=== PATIENT | male | born 1950 | race Caucasian/White ===

== ENCOUNTER 2018-01-23 11:52 | Inpatient (IN) | payer MEDICARE ==
[~2018-01-23] VITALS: Ht 182.9 cm; Wt 105.5 kg
[~2018-01-23 11:52] MED LIST: CYAN10007; ESOM20CA PO; FERR325T39 PO; FOL0.4T PO; HYDR-4353 PO; LEVO25TA2 PO; METF500T PO; VALS1TAB75 PO
[2018-01-23 14:00] VITALS: BP 117/85
[2018-01-23] MEDS ORDERED: ringers solution, lacted 1,000 ML IV SCH (14:58)
[2018-01-23] MEDS ORDERED: proCHLORperazine 10 MG/2 ml inj IV PRN (15:00)
[2018-01-23] MEDS ORDERED: meperidine/PF 25mg/ml syringe IV PRN ×3 (15:00)
[2018-01-23] MEDS ORDERED: morphine 4 MG/ML inj SYRINge IV PRN ×2 (15:00)
[2018-01-23] MEDS ORDERED: ondansetron/PF 4mg/2ml inj IV PRN (15:00)
[2018-01-23] MEDS ORDERED: HYDROcodone/acetaminophen 10/325mg tab PO PRN ×2 (15:25)
[2018-01-23] MEDS ORDERED: Cefazolin 2GM/100ML NS IVPB 100 ML IV ONE (15:40)
[2018-01-23] MEDS ORDERED: clindamycin 300mg/D5W 50mL 50 ML IV SCH (16:00)
[2018-01-23] MEDS ORDERED: WARF-55 PO (17:02)
[2018-01-23] MEDS ORDERED: FURO40TA4 PO (17:04)
[2018-01-23] MEDS ORDERED: METO-384 PO (17:04)
[2018-01-23] MEDS ORDERED: BENA20TA82 PO (17:06)
[2018-01-23] MEDS ORDERED: DIGO250T77 PO (17:06)
[2018-01-23] MEDS ORDERED: POTA10TA15 PO (17:06)
[2018-01-23] MEDS ORDERED: CHOL10002 PO (17:06)
[2018-01-23] MEDS: potassium CL 20mEq in D5-1/2NS 1,000 ML IV SCH (17:54)
[2018-01-23 18:00] VITALS: BP 106/76
[2018-01-23] MEDS ORDERED: LEVO100T PO (18:16)
[2018-01-23] MEDS: clindamycin 300mg/D5W 50mL 50 ML IV SCH (20:31)
[2018-01-23] MEDS ORDERED: phytonadione inj. 10 MG in normal saline 100ml IV soln 99 ML IV ONE (21:15)
[2018-01-23 22:00] VITALS: BP 107/61
[2018-01-23 22:24] LABS: BASOPHILS % (AUTO) 0.3 % (0-1); EOSINOPHILS # (AUTO) 0.1 X10'3 (0-0.9); EOSINOPHILS % (AUTO) 1.5 % (0-6); HEMATOCRIT 30.4 % (42.0-52.0); HEMOGLOBIN 9.5 g/dl (14.0-17.9); LYMPHOCYTES % (AUTO) 57.4 % (21-51); MEAN CORPUSCULAR HGB CONC 31.4 % (33.0-36.5); MEAN CORPUSCULAR VOLUME 73.4 FL (78-98); MEAN PLATELET VOLUME 6.7 FL (7.4-10.4); MONOCYTES # (AUTO) 0.4 X10'3 (0-0.9); MONOCYTES % (AUTO) 5.1 % (2-12); NEUTROPHILS # (AUTO) 2.5 X10'3 (1.8-7.7); NEUTROPHILS % (AUTO) 35.7 % (42-75); PLATELET COUNT 234 X10'3 (140-440); RED BLOOD COUNT 4.14 X10'6 (4.70-6.10); WHITE BLOOD COUNT 7.1 X10'3 (4.5-11.0)
[2018-01-23 22:34] LABS: ALANINE AMINOTRANSFERASE 30 U/L (12-78); ALBUMIN 2.7 G/DL (3.4-5.0); ALBUMIN/GLOBULIN RATIO 0.6 (1.1-1.5); ALKALINE PHOSPHATASE 113 IU/L (46-116); ANION GAP 7 (8-16); ASPARTATE AMINO TRANSFERASE 23 U/L (10-37); BILIRUBIN,TOTAL 0.4 MG/DL (0.1-1.0); BLOOD UREA NITROGEN 14 MG/DL (7-18); BUN/CREATININE RATIO 14.7 (5.4-32.0); C-REACTIVE PROTEIN 3.55 MG/DL (0.0-0.5); CALCIUM 8.4 MG/DL (8.5-10.1); CHLORIDE 98 MMOL/L (99-107); CREATININE 0.95 MG/DL (0.60-1.10); GLUCOSE 130 MG/DL (70-104); POTASSIUM 4.1 MMOL/L (3.5-5.1); SODIUM 134 MMOL/L (135-145); TOTAL PROTEIN 7.4 G/DL (6.4-8.2); eGFR 79 ML/MIN
[2018-01-23 22:37] LABS: PARTIAL THROMBOPLASTIN TIME 33 SECONDS (22-32); PROTHROMBIN TIME 19.5 SECONDS (9.0-12.0)
[2018-01-23 23:04] LABS: HEMOGLOBIN A1C 6.9 % (4.5-6.2)
[2018-01-24] VITALS (15 sets, daily range): BP systolic 103–145; BP diastolic 66–92
[2018-01-24 01:30] LABS: CLARITY,URINE CLEAR (Clear); COLOR,URINE YELLOW (Yellow); GLUCOSE, URINE NEGATIVE (Neg); KETONES,URINE NEGATIVE (Neg); LEUKOCYTE ESTERASE ,URINE NEGATIVE (Neg); NITRITES, URINE NEGATIVE (Neg); OCCULT BLOOD,URINE TRACE-LYSED (Neg); PROTEIN,URINE NEGATIVE (Neg); UROBILINOGEN,URINE 0.2 E.U/dL (0.2-1.0)
[2018-01-24 01:33] LABS: UA COLLECTION TYPE NON-SPECIFIED
[2018-01-24 01:41] LABS: BACTERIA,URINE NONE SEEN /HPF (Neg); RBC,URINE 0-2 /HPF (0-2); SQUAMOUS EPITHELIAL CELL,UR FEW /LPF (FEW); WBC,URINE NONE SEEN /HPF (0-4)
[2018-01-24] MEDS: clindamycin 300mg/D5W 50mL 50 ML IV SCH ×4 (02:09→20:00)
[2018-01-24 05:38] LABS: BASOPHILS % (AUTO) 0.1 % (0-1); EOSINOPHILS # (AUTO) 0.1 X10'3 (0-0.9); EOSINOPHILS % (AUTO) 2.5 % (0-6); HEMATOCRIT 28.7 % (42.0-52.0); HEMOGLOBIN 9.1 g/dl (14.0-17.9); LYMPHOCYTES # (AUTO) 3.8 X10'3 (1.1-4.8); MEAN CORPUSCULAR HEMOGLOBIN 23.1 PG (27.0-31.0); MEAN CORPUSCULAR HGB CONC 31.6 % (33.0-36.5); MEAN PLATELET VOLUME 6.4 FL (7.4-10.4); MONOCYTES # (AUTO) 0.3 X10'3 (0-0.9); MONOCYTES % (AUTO) 4.8 % (2-12); NEUTROPHILS # (AUTO) 1.9 X10'3 (1.8-7.7); NEUTROPHILS % (AUTO) 30.6 % (42-75); PLATELET COUNT 204 X10'3 (140-440); RED BLOOD COUNT 3.93 X10'6 (4.70-6.10); RED CELL DISTRIBUTION WIDTH 16.9 % (11.5-14.5); WHITE BLOOD COUNT 6.1 X10'3 (4.5-11.0)
[2018-01-24 05:51] LABS: ALANINE AMINOTRANSFERASE 26 U/L (12-78); ALBUMIN 2.5 G/DL (3.4-5.0); ALBUMIN/GLOBULIN RATIO 0.6 (1.1-1.5); ALKALINE PHOSPHATASE 108 IU/L (46-116); ANION GAP 8 (8-16); ASPARTATE AMINO TRANSFERASE 19 U/L (10-37); BILIRUBIN,TOTAL 0.4 MG/DL (0.1-1.0); BLOOD UREA NITROGEN 13 MG/DL (7-18); BUN/CREATININE RATIO 14.8 (5.4-32.0); CALCIUM 7.9 MG/DL (8.5-10.1); CHLORIDE 99 MMOL/L (99-107); CREATININE 0.88 MG/DL (0.60-1.10); GLUCOSE 118 MG/DL (70-104); POTASSIUM 4.3 MMOL/L (3.5-5.1); SODIUM 134 MMOL/L (135-145); TOTAL PROTEIN 6.8 G/DL (6.4-8.2); eGFR 87 ML/MIN
[2018-01-24 05:54] LABS: INR 1.6 INR; PARTIAL THROMBOPLASTIN TIME 30 SECONDS (22-32); PROTHROMBIN TIME 15.4 SECONDS (9.0-12.0)
[2018-01-24] MEDS: levoTHYROXINE 100mcg tablet PO SCH (06:47)
[2018-01-24] MEDS: pantoprazole 40mg Tablet.DR PO SCH (06:47)
[2018-01-24] MEDS: furosemide 20MG tablet PO SCH (07:16)
[2018-01-24] MEDS: lisinopril 20mg tablet PO SCH (07:16)
[2018-01-24] MEDS: ceFAZolin 1GM/D5W- ADD-VANTAGE 50 ML IV SCH ×4 (07:19→23:05)
[2018-01-24] MEDS: metFORMIN 500mg tablet PO SCH ×2 (07:19→20:00)
[2018-01-24] MEDS: potassium chloride 10mEq ER tablet PO SCH (07:20)
[2018-01-24] MEDS: folic acid 0.4mg tablet PO SCH (07:20)
[2018-01-24] MEDS: vitamin D (cholecalciferol) 1,000 unit tablet PO SCH (07:20)
[2018-01-24] MEDS: metoprolol succinate 25mg (24-HOUR) SR. Tablet PO SCH (07:21)
[2018-01-24] MEDS: digoxin 250mcg (0.25mg) tablet PO SCH (07:21)
[2018-01-24] MEDS: potassium CL 20mEq in D5-1/2NS 1,000 ML IV SCH ×3 (08:42→23:00)
[2018-01-24] MEDS ORDERED: neostigmine methylsulfate 1 MG/ML 10ml vial ONE (18:03)
[2018-01-24] MEDS ORDERED: glycopyrrolate 0.2mg/ml inj ONE (18:03)
[2018-01-24] MEDS ORDERED: ondansetron/PF 4mg/2ml inj ONE ×2 (18:03→18:53)
[2018-01-24] MEDS ORDERED: sevoflurane 250ml liquid IH ONE ×2 (18:03→18:53)
[2018-01-24] MEDS ORDERED: midazolam 2 mg/2 ml injection ONE (18:56)
[2018-01-24] MEDS ORDERED: fentaNYL /PF 50mcg/ml 5ml ampule ONE (18:57)
[2018-01-24] MEDS ORDERED: vancomycin 1,000mg inj ONE ×2 (19:12)
[2018-01-24] MEDS ORDERED: propofol inj 20 ML IV ONE (19:17)
[2018-01-24] MEDS ORDERED: rocuronium 10mg/ml inj IV ONE (19:17)
[2018-01-24] MEDS ORDERED: LIDOcaine 2% (20mg/ml) 5ml vial ONE (19:17)
[2018-01-24] MEDS ORDERED: dexamethasone sod phosphate 4mg/ml inj. ONE (19:17)
[2018-01-24 19:20] LABS: INR 1.2 INR; PARTIAL THROMBOPLASTIN TIME 28 SECONDS (22-32); PROTHROMBIN TIME 12.4 SECONDS (9.0-12.0)
[2018-01-24] MEDS ORDERED: ROPIVAcaine 0.5% (5mg/ml) 30ml vial ONE (19:34)
[2018-01-24] MEDS ORDERED: ketorolac trometh. 30mg/ml inj. ONE (19:34)
[2018-01-24] MEDS ORDERED: ringers solution, lacted 1,000 ML IV SCH (19:49)
[2018-01-24] MEDS ORDERED: ondansetron/PF 4mg/2ml inj IV PRN ×2 (19:50→21:00)
[2018-01-24] MEDS ORDERED: morphine 4 MG/ML inj SYRINge IV PRN ×2 (19:50)
[2018-01-24] MEDS ORDERED: proCHLORperazine 10 MG/2 ml inj IV PRN (19:50)
[2018-01-24] MEDS ORDERED: meperidine/PF 25mg/ml syringe IV PRN ×3 (19:50)
[2018-01-24] MEDS ORDERED: naloxone 0.4 mg/ml inj IV PRN (21:00)
[2018-01-24] MEDS ORDERED: CADD PCA waste documentation MC PRN (21:00)
[2018-01-24] MEDS ORDERED: acetaminophen 325mg tablet PO PRN (21:00)
[2018-01-24] MEDS ORDERED: mag hydrox/Alum hydrox/simeth 30ml oral suspension PO PRN (21:00)
[2018-01-24] MEDS ORDERED: metoclopramide 5 mg/ml inj IV PRN (21:00)
[2018-01-24] MEDS ORDERED: HYDROcodone/acetaminophen 10/325mg tab PO PRN (21:00)
[2018-01-24] MEDS ORDERED: magnesium hydroxide 30ml (MOM) UD suspension PO PRN (21:00)
[2018-01-24] MEDS: sennosides 8.6mg tablet PO SCH (21:00)
[2018-01-24] MEDS: gabapentin 300mg capsule PO SCH (21:00)
[2018-01-24] MEDS ORDERED: bisacodyl 10mg suppository rectal RC PRN (21:00)
[2018-01-24] MEDS ORDERED: diphenhydrAMINE 25mg capsule PO PRN ×2 (21:00)
[2018-01-24] MEDS: HYDROmorphone/NS 1 mg/ml CADD 50 ML IV SCH ×2 (21:41→23:00)
[2018-01-24] MEDS: potassium cl 20mEq in 1/2 NS 1,000 ML IV SCH (23:03)
[2018-01-24] MEDS: enoxaparin 40mg/0.4ml syringe SQ SCH (23:05)
[2018-01-25] VITALS (9 sets, daily range): BP systolic 80–117; BP diastolic 41–79
[2018-01-25] MEDS ORDERED: ceFAZolin 1GM/D5W- ADD-VANTAGE 50 ML IV SCH
[2018-01-25] MEDS: HYDROmorphone/NS 1 mg/ml CADD 50 ML IV SCH ×9 (01:00→17:00)
[2018-01-25] MEDS: acetaminophen 325mg tablet PO SCH ×4 (01:50→20:44)
[2018-01-25] MEDS: clindamycin 300mg/D5W 50mL 50 ML IV SCH ×4 (01:50→20:43)
[2018-01-25 05:54] LABS: BASOPHILS % (AUTO) 0.1 % (0-1); EOSINOPHILS # (AUTO) 0.1 X10'3 (0-0.9); EOSINOPHILS % (AUTO) 0.8 % (0-6); HEMATOCRIT 28.2 % (42.0-52.0); LYMPHOCYTES # (AUTO) 3.5 X10'3 (1.1-4.8); LYMPHOCYTES % (AUTO) 37.7 % (21-51); MEAN CORPUSCULAR HEMOGLOBIN 23.4 PG (27.0-31.0); MEAN CORPUSCULAR VOLUME 73.3 FL (78-98); MEAN PLATELET VOLUME 6.6 FL (7.4-10.4); MONOCYTES # (AUTO) 0.2 X10'3 (0-0.9); MONOCYTES % (AUTO) 2.2 % (2-12); NEUTROPHILS # (AUTO) 5.5 X10'3 (1.8-7.7); NEUTROPHILS % (AUTO) 59.2 % (42-75); PLATELET COUNT 238 X10'3 (140-440); RED BLOOD COUNT 3.85 X10'6 (4.70-6.10); RED CELL DISTRIBUTION WIDTH 16.7 % (11.5-14.5); WHITE BLOOD COUNT 9.3 X10'3 (4.5-11.0)
[2018-01-25 06:09] LABS: ANION GAP 10 (8-16); CHLORIDE 97 MMOL/L (99-107); POTASSIUM 4.6 MMOL/L (3.5-5.1); SODIUM 132 MMOL/L (135-145); TOTAL CARBON DIOXIDE 24.6 MMOL/L (24-32)
[2018-01-25] MEDS: ascorbic acid 500mg tablet PO SCH ×2 (07:46→20:43)
[2018-01-25] MEDS: enoxaparin 40mg/0.4ml syringe SQ SCH (07:46)
[2018-01-25] MEDS: gabapentin 300mg capsule PO SCH ×3 (07:46→20:43)
[2018-01-25] MEDS: potassium chloride 10mEq ER tablet PO SCH (07:47)
[2018-01-25] MEDS: vitamin D (cholecalciferol) 1,000 unit tablet PO SCH (07:47)
[2018-01-25] MEDS: metFORMIN 500mg tablet PO SCH ×2 (07:47→20:43)
[2018-01-25] MEDS: multivitamins, therapeutics tablet PO SCH (07:48)
[2018-01-25] MEDS: folic acid 0.4mg tablet PO SCH (07:48)
[2018-01-25] MEDS: levoTHYROXINE 100mcg tablet PO SCH (07:49)
[2018-01-25] MEDS: pantoprazole 40mg Tablet.DR PO SCH (07:49)
[2018-01-25] MEDS: digoxin 250mcg (0.25mg) tablet PO SCH (07:49)
[2018-01-25] MEDS: ceFAZolin 1GM/D5W- ADD-VANTAGE 50 ML IV SCH ×2 (07:50→17:38)
[2018-01-25] MEDS: lisinopril 20mg tablet PO SCH (07:58)
[2018-01-25] MEDS: metoprolol succinate 25mg (24-HOUR) SR. Tablet PO SCH (07:58)
[2018-01-25] MEDS: furosemide 20MG tablet PO SCH (07:58)
[2018-01-25] MEDS: potassium cl 20mEq in 1/2 NS 1,000 ML IV SCH ×4 (09:16→23:51)
[2018-01-25] MEDS ORDERED: normal saline 500ml IV soln 1,000 ML IV ONE (16:25)
[2018-01-25] MEDS: lactobacillus rhamnosus 10,000 MMU CELLS/CAPSULE PO SCH (20:43)
[2018-01-25] MEDS: sennosides 8.6mg tablet PO SCH (20:44)
[2018-01-25] MEDS: HYDROcodone/acetaminophen 10/325mg tab PO PRN (23:04)
[2018-01-26] MEDS: ceFAZolin 1GM/D5W- ADD-VANTAGE 50 ML IV SCH ×2 (00:03→08:23)
[2018-01-26] MEDS: clindamycin 300mg/D5W 50mL 50 ML IV SCH ×2 (02:05→07:22)
[2018-01-26] MEDS: acetaminophen 325mg tablet PO SCH ×3 (02:06→13:28)
[2018-01-26] MEDS: HYDROcodone/acetaminophen 10/325mg tab PO PRN ×3 (04:55→15:44)
[2018-01-26 05:30] VITALS: BP 118/69
[2018-01-26 07:10] VITALS: BP 148/62
[2018-01-26] MEDS: multivitamins, therapeutics tablet PO SCH (07:20)
[2018-01-26] MEDS: ascorbic acid 500mg tablet PO SCH (07:20)
[2018-01-26] MEDS: potassium chloride 10mEq ER tablet PO SCH (07:20)
[2018-01-26] MEDS: gabapentin 300mg capsule PO SCH ×2 (07:20→13:28)
[2018-01-26] MEDS: lisinopril 20mg tablet PO SCH (07:20)
[2018-01-26] MEDS: pantoprazole 40mg Tablet.DR PO SCH (07:20)
[2018-01-26] MEDS: folic acid 0.4mg tablet PO SCH (07:21)
[2018-01-26] MEDS: metoprolol succinate 25mg (24-HOUR) SR. Tablet PO SCH (07:21)
[2018-01-26] MEDS: vitamin D (cholecalciferol) 1,000 unit tablet PO SCH (07:21)
[2018-01-26] MEDS: furosemide 20MG tablet PO SCH (07:21)
[2018-01-26] MEDS: digoxin 250mcg (0.25mg) tablet PO SCH (07:21)
[2018-01-26] MEDS: metFORMIN 500mg tablet PO SCH (07:21)
[2018-01-26] MEDS: levoTHYROXINE 100mcg tablet PO SCH (07:21)
[2018-01-26] MEDS: lactobacillus rhamnosus 10,000 MMU CELLS/CAPSULE PO SCH (07:21)
[2018-01-26] MEDS ORDERED: VANCOMYCIN LEVEL IV ONE (07:30)
[2018-01-26 08:22] LABS: BASOPHILS % (AUTO) 0.4 % (0-1); EOSINOPHILS # (AUTO) 0.1 X10'3 (0-0.9); EOSINOPHILS % (AUTO) 1.1 % (0-6); HEMATOCRIT 25.8 % (42.0-52.0); HEMOGLOBIN 8.2 g/dl (14.0-17.9); LYMPHOCYTES # (AUTO) 3.9 X10'3 (1.1-4.8); MEAN CORPUSCULAR HEMOGLOBIN 23.5 PG (27.0-31.0); MEAN CORPUSCULAR HGB CONC 31.8 % (33.0-36.5); MEAN CORPUSCULAR VOLUME 73.8 FL (78-98); MEAN PLATELET VOLUME 6.4 FL (7.4-10.4); MONOCYTES # (AUTO) 0.3 X10'3 (0-0.9); MONOCYTES % (AUTO) 4.6 % (2-12); NEUTROPHILS % (AUTO) 40.9 % (42-75); PLATELET COUNT 237 X10'3 (140-440); RED BLOOD COUNT 3.49 X10'6 (4.70-6.10); RED CELL DISTRIBUTION WIDTH 16.7 % (11.5-14.5); WHITE BLOOD COUNT 7.4 X10'3 (4.5-11.0)
[2018-01-26] MEDS ORDERED: CefTRIAXone 2gm/D5W 50ml 50 ML IV SCH (09:10)
[2018-01-26 09:38] VITALS: BP 128/77
[2018-01-26] MEDS ORDERED: vancomycin inj 1,250 MG in normal saline 250ml IV soln 250 ML IV SCH (16:00)
[2018-01-26] MEDS ORDERED: enoxaparin 30mg/0.3ml syringe SUBCUT ONE (17:00)
[2018-01-27] MEDS ORDERED: VANCOMYCIN LEVEL IV ONE (15:30)
== END 2018-01-26 18:10 | disposition home or self-care (01) | DRG 486 ==
LOC: ORTHO 4S 13:45
PROVIDERS: ADMIT Orthopaedic Surgery; ATTEND Orthopaedic Surgery
PROC: 0SUW09Z Supplement Left Knee Joint, Tibial Surface with Liner, Open Approach (ICD-10-PCS; 2018-01-24)
PROC: 3E0U029 Introduction of Other Anti-infective into Joints, Open Approach (ICD-10-PCS; 2018-01-24)
PROC: 0SBD0ZZ Excision of Left Knee Joint, Open Approach (ICD-10-PCS; 2018-01-24)
PROC: 0SPD09Z Removal of Liner from Left Knee Joint, Open Approach (ICD-10-PCS; principal; 2018-01-24 18:53)
PROC: 02HV33Z Insertion of Infusion Device into Superior Vena Cava, Percutaneous Approach (ICD-10-PCS; 2018-01-25)
PROC: B548ZZA Ultrasonography of Superior Vena Cava, Guidance (ICD-10-PCS; 2018-01-25)
DX: T84.54XA Infection and inflammatory reaction due to internal left knee prosthesis, initial encounter (principal); C91.10 Chronic lymphocytic leukemia of B-cell type not having achieved remission; D62 Acute posthemorrhagic anemia; E11.9 Type 2 diabetes mellitus without complications; E89.0 Postprocedural hypothyroidism; F17.200 Nicotine dependence, unspecified, uncomplicated; I11.0 Hypertensive heart disease with heart failure; I48.91 Unspecified atrial fibrillation; E66.01 Morbid (severe) obesity due to excess calories; Z96.651 Presence of right artificial knee joint; Y83.1 Surgical operation with implant of artificial internal device as the cause of abnormal reaction of the patient, or of later complication, without mention of misadventure at the time of the procedure; I50.9 Heart failure, unspecified; K21.9 Gastro-esophageal reflux disease without esophagitis; Z79.01 Long term (current) use of anticoagulants; Z79.899 Other long term (current) drug therapy; Z85.850 Personal history of malignant neoplasm of thyroid; Z68.31 Body mass index [BMI] 31.0-31.9, adult; Y92.89 Other specified places as the place of occurrence of the external cause
CPT/HCPCS: 36415; 71045; 80051; 80053; 80202; 81001; 82948; 83036; 83735; 84443; 85025; 85610; 85651; 85730; 86140; 86885; 86900; 86901; 86920; 87070; 87075; 87102; 93005; 97110; 97116; 97161; 97530; A6222; A6449; A7000; C1713; C1776; G0378; J0690; J0696; J1100; J1170; J1650; J1885; J2001; J2250; J2405; J2704; J2710; J2795; J3010; J3370; J3430; J3490; J7030; J7120; X5958